=== PATIENT | male | born 1980 | race Caucasian/White ===

== ENCOUNTER 2023-11-29 04:40 | Emergency (ER) | payer OTHER ==
[2023-11-29 04:47] LABS: Glucose,Whole Blood 90 mg/dL (70-110)
--- NOTE | 2023-11-29 05:24 | ED ---
General Adult HPI - General Source: patient Mode of arrival: wheelchair Limitations: no limitations - History of Present Illness -: minutes(s) Severity scale (1-10): 0 Improves with: none Worsens with: none Associated Symptoms: denies other symptoms Treatments Prior to Arrival: none <Lanre Hernandez - Last Filed: 11/29/23 07:31> <John Jefferson - Last Filed: 11/29/23 09:06> - General Chief complaint: Fall Stated complaint: Syncope Time Seen by Provider: 11/29/23 05:04 - History of Present Illness Initial comments: Patient is a 43-year-old man who presents to have evaluation for altered mental status. Patient's states that in the middle of the night she heard a loud noise and when she checked she found that the patient had fallen. He appeared to be staring off and did not respond when she shook him. She states that after brief period he started to become more alert but was confused. He kept asking what had happened. The patient's had called EMS but when he became more responsive she canceled the call and drove him here. (Lanre Hernandez) - Related Data Allergies Allergy/AdvReac Type Severity Reaction Status Date / Time Penicillins Allergy Unknown Verified 11/29/23 04:48 Childhood Review of Systems ROS Other: All systems not noted in ROS Statement are negative. <Lanre Hernandez - Last Filed: 11/29/23 07:31> ROS Other: All systems not noted in ROS Statement are negative. <John Jefferson - Last Filed: 11/29/23 09:06> ROS Statement: Those systems with pertinent positive or pertinent negative responses have been documented in the HPI. Past Medical History Past Medical History: Hypertension History of Any Multi-Drug Resistant Organisms: None Reported Past Surgical History: No Surgical Hx Reported Past Psychological History: No Psychological Hx Reported Smoking Status: Never smoker Past Alcohol Use History: None Reported Past Drug Use History: None Reported <Lanre Hernandez - Last Filed: 11/29/23 07:31> General Exam Limitations: no limitations General appearance: alert, in no apparent distress Head exam: Present: atraumatic, normocephalic Eye exam: Present: normal appearance, PERRL, EOMI. Absent: scleral icterus, conjunctival injection Neck exam: Present: normal inspection, full ROM. Absent: tenderness, meningismus Respiratory exam: Present: normal lung sounds bilaterally. Absent: respiratory distress, wheezes, rales, rhonchi, stridor, accessory muscle use Cardiovascular Exam: Present: regular rate, normal rhythm, normal heart sounds. Absent: systolic murmur, diastolic murmur, rubs, gallop GI/Abdominal exam: Present: soft. Absent: distended, tenderness, guarding, rebound Extremities exam: Present: normal inspection, normal capillary refill. Absent: pedal edema, calf tenderness Back exam: Present: normal inspection. Absent: CVA tenderness (R), CVA tenderness (L), vertebral tenderness Neurological exam: Present: alert, oriented X3, CN II-XII intact. Absent: motor sensory deficit Expanded Patient oriented to: Present: person, place, time Speech: Present: fluid speech Sensory exam: Upper Extremity Light Touch: Normal, Lower Extremity Light Touch: Normal Motor strength exam: RUE: 5, LUE: 5, RLE: 5, LLE: 5 Eye Response: (4) open spontaneously Motor Response: (6) obeys commands Verbal Response: (5) oriented Skin exam: Present: warm, dry, intact, normal color. Absent: rash <Lanre Hernandez - Last Filed: 11/29/23 07:31> Limitations: no limitations General appearance: alert, in no apparent distress Head exam: Present: atraumatic, normocephalic Eye exam: Present: normal appearance, PERRL, EOMI ENT exam: Present: normal oropharynx Neck exam: Present: normal inspection. Absent: tenderness Respiratory exam: Present: normal lung sounds bilaterally Cardiovascular Exam: Present: regular rate, normal rhythm GI/Abdominal exam: Present: soft. Absent: tenderness Extremities exam: Present: normal inspection Back exam: Present: normal inspection Neurological exam: Present: alert, oriented X3, CN II-XII intact. Absent: motor sensory deficit Expanded Neurological exam: Present: protecting the airway Patient oriented to: Present: person, place, time Speech: Present: fluid speech Cranial nerves: EOM's Intact: Normal, Facial Sensation: Normal Sensory exam: Upper Extremity Light Touch: Normal, Lower Extremity Light Touch: Normal Motor strength exam: RUE: 5, LUE: 5, RLE: 5, LLE: 5 Eye Response: (4) open spontaneously Motor Response: (6) obeys commands Verbal Response: (5) oriented Psychiatric exam: Present: normal affect, normal mood Skin exam: Present: normal color <John Jefferson - Last Filed: 11/29/23 09:06> Course <John Jefferson - Last Filed: 11/29/23 09:06> Vital Signs 11/29/23 11/29/23 11/29/23 04:42 07:42 08:05 Temperature 97.3 F L 98.1 F Pulse Rate 106 H 103 H 92 Respiratory 20 18 18 Rate Blood Pressure 144/90 125/92 135/92 O2 Sat by Pulse 99 99 97 Oximetry - Reevaluation(s) Reevaluation #1: 11/29/23 07:25 Call from radiologist with concern for possible left vertex subarachnoid hemorrhage. Patient reevaluated by myself. Neurointerventional called. Patient is alert and oriented and appropriate. Patient only complains of mild headache at this time. No headache earlier. states she heard a fall around 4:15 AM. Patient was confused around 20 to 30 minutes, mostly in route however has been acting appropriate since that time. 11/29/23 07:42 Case was discussed with Dr. Kerr who agrees with CT angiogram and will review studies. CT was notified of need for stat exam. (John Jefferson) EKG Findings - EKG Results: EKG: interpreted by ERON, sinus rhythm (Rate 86 bpm), normal axis, normal QRS, normal ST/T, no acute changes - OR, Pacemaker, Normal: Normal tracing: normal tracing <Lanre Hernandez - Last Filed: 11/29/23 07:31> Medical Decision Making - Lab Data Result diagrams: 11/29/23 05:15 11/29/23 05:15 <Lanre Hernandez - Last Filed: 11/29/23 07:31> - Lab Data Result diagrams: 11/29/23 05:15 11/29/23 05:15 <John Jefferson - Last Filed: 11/29/23 09:06> - Medical Decision Making Was pt. sent in by a medical professional or institution (, PA, CORRECTIVE THERAPY AIDE, urgent care, hospital, or alf...) When possible be specific @ -No Did you speak to anyone other than the patient for history (EMS, parent, family, police, friend...)? What history was obtained from this source @ - is present helps provide history the patient does not recall Did you review nursing and triage notes (agree or disagree)? Why? @ -I reviewed and agree with nursing and triage notes Were old charts reviewed (outside hosp., previous admission, EMS record, old EKG, old radiological studies, urgent care reports/EKG's, alf records)? Report findings @ -No old charts were reviewed Differential Diagnosis (chest pain, altered mental status, abdominal pain women, abdominal pain men, vaginal bleeding, weakness, fever, dyspnea, syncope, headache, dizziness, GI bleed, back pain, seizure, CVA, palpatations, mental health, musculoskeletal)? @ -Differential Altered Mental Status: Hypoglycemia, DKA, hypercapnia, ETOH, overdose, CO poisoning, trauma, myxedema coma, HTN encephalopathy, infection, encephalitis, psychosis, intercranial hemorrhage, hepatic encephalopathy, meningitis, CVA, this is not meant to be an all-inclusive list EKG interpreted by me (3pts min.). @ -As above X-rays interpreted by me (1pt min.). @ -Chest x-ray shows no acute process CT interpreted by me (1pt min.). @ -CT scan of the brain with concern for subarachnoid blood at the left vertex. CT angio unremarkable as reviewed with Dr. Kerr U/S interpreted by me (1pt. min.). @ -None done What testing was considered but not performed or refused? (CT, X-rays, U/S, labs)? Why? @ -None What meds were considered but not given or refused? Why? @ -None Did you discuss the management of the patient with other professionals (professionals i.e. , PA, CORRECTIVE THERAPY AIDE, lab, RT, psych nurse, 7th grade social studies teacher, right of way man, teacher, customs and border protection officer, test case developer)? Give summary @ -Case was discussed with Dr. Kerr who did review CT angio and has no concerns for aneurysm however does recommend transfer to [facility] for further evaluation. Case discussed with Dr. Liang who will accept transfer. Was smoking cessation discussed for >3mins.? @ -No Was critical care preformed (if so, how long)? @ -31 minutes critical care time Were there social determinants of health that impacted care today? How? (Homelessness, low income, unemployed, alcoholism, drug addiction, transportation, low edu. Level, literacy, decrease access to med. care, nursing home, rehab)? @ -No Was there de-escalation of care discussed even if they declined (Discuss DNR or withdrawal of care, Hospice)? DNR status @ -No What co-morbidities impacted this encounter? (DM, HTN, Smoking, COPD, CAD, Cancer, CVA, ARF, Chemo, Hep., AIDS, mental health diagnosis, sleep apnea, morbid obesity)? @ -None Was patient admitted / discharged? Hospital course, mention meds given and route, prescriptions, significant lab abnormalities, going to OR and other pertinent info. @ -Patient presents with syncope versus injury with loss of consciousness with concern for possible blood left vertex, subarachnoid. CT angio unremarkable. Patient be transferred for level of care and further evaluation at [facility]. Patient and family updated. Undiagnosed new problem with uncertain prognosis? @ -No Drug Therapy requiring intensive monitoring for toxicity (Heparin, Nitro, Insulin, Cardizem)? @ -No Were any procedures done? @ -No Diagnosis/symptom? @ -Subarachnoid hemorrhage Acute, or Chronic, or Acute on Chronic? @ -Acute Uncomplicated (without systemic symptoms) or Complicated (systemic symptoms)? @ -Default Side effects of treatment? @ -No Exacerbation, Progression, or Severe Exacerbation? @ -No Poses a threat to life or bodily function? How? (Chest pain, USA, OR, pneumonia, PE, COPD, DKA, ARF, appy, cholecystitis, CVA, Diverticulitis, Homicidal, Suicidal, threat to staff... and all critical care pts) @ -No (John Jefferson) - Lab Data Lab Results 11/29/23 11/29/23 11/29/23 Range/Units 04:44 05:15 05:15 WBC 9.4 (3.8-10.6) k/uL RBC 5.72 (4.30-5.90) m/uL Hgb 16.8 (13.0-17.5) gm/dL Hct 49.9 (39.0-53.0) % MCV 87.3 (80.0-100.0) fL MCH 29.5 (25.0-35.0) pg MCHC 33.7 (31.0-37.0) g/dL RDW 12.6 (11.5-15.5) % Plt Count 258 (150-450) k/uL MPV 8.5 Neutrophils % 65 % Lymphocytes % 24 % Monocytes % 4 % Eosinophils % 3 % Basophils % 1 % Neutrophils # 6.1 (1.3-7.7) k/uL Lymphocytes # 2.3 (1.0-4.8) k/uL Monocytes # 0.4 (0-1.0) k/uL Eosinophils # 0.3 (0-0.7) k/uL Basophils # 0.1 (0-0.2) k/uL Sodium 137 (137-145) mmol/L Potassium 4.2 (3.5-5.1) mmol/L Chloride 105 (98-107) mmol/L Carbon Dioxide 16 L (22-30) mmol/L Anion Gap 16 mmol/L BUN 11 (9-20) mg/dL Creatinine 1.00 (0.66-1.25) mg/dL Est GFR (CKD-EPI)AfAm >90 (>60 ml/min/1.73 sqM) Est GFR (CKD-EPI)NonAf >90 (>60 ml/min/1.73 sqM) Glucose 94 (74-99) mg/dL POC Glucose (mg/dL) 90 (70-110) mg/dL POC Glu Internet Application Developer ID Jose Serrano Calcium 9.5 (8.4-10.2) mg/dL Magnesium 2.1 (1.6-2.3) mg/dL Total Bilirubin 1.4 H (0.2-1.3) mg/dL AST 51 (17-59) U/L ALT 54 H (4-49) U/L Alkaline Phosphatase 82 (38-126) U/L Total Protein 8.3 H (6.3-8.2) g/dL Albumin 5.2 H (3.5-5.0) g/dL Disposition <Lanre Hernandez - Last Filed: 11/29/23 07:31> Is patient prescribed a controlled substance at d/c from ED?: No Time of Disposition: 09:06 - Out of Hospital Transfer - Req. Specs Out of Hospital Transfer - Requested Specifics: Other Emergency Center <John Jefferson - Last Filed: 11/29/23 09:06> Clinical Impression: Subarachnoid hemorrhage Disposition: OTHER INSTITUTION NOT DEFINED Referrals: Carlos Bonilla MD [Primary Care Provider] - 1-2 days
[2023-11-29] MEDS: SODIUM CHLORIDE 0.9% 500 ML 500 ML IV STA (05:42)
[2023-11-29 05:43] LABS: Basophils # (A) 0.1 k/uL (0-0.2); Basophils % (A) 1 %; Eosinophils # (A) 0.3 k/uL (0-0.7); Eosinophils % (A) 3 %; HCT 49.9 % (39.0-53.0); HGB 16.8 gm/dL (13.0-17.5); Lymphocytes # (A) 2.3 k/uL (1.0-4.8); Lymphocytes % (A) 24 %; MCH 29.5 pg (25.0-35.0); MCHC 33.7 g/dL (31.0-37.0); MCV 87.3 fL (80.0-100.0); Mean Platelet Volume 8.5; Monocytes # (A) 0.4 k/uL (0-1.0); Monocytes % (A) 4 %; Neutrophils # (A) 6.1 k/uL (1.3-7.7); Neutrophils % (A) 65 %; Platelet Count 258 k/uL (150-450); RBC 5.72 m/uL (4.30-5.90); RDW 12.6 % (11.5-15.5); WBC 9.4 k/uL (3.8-10.6)
[2023-11-29 05:56] LABS: ALT 54 U/L (4-49); African American GFR (CKD) >90 (>60 ml/min/1.73 sqM); Albumin 5.2 g/dL (3.5-5.0); Anion Gap 16 mmol/L; Blood Urea Nitrogen 11 mg/dL (9-20); Calcium 9.5 mg/dL (8.4-10.2); Carbon Dioxide 16 mmol/L (22-30); Chloride 105 mmol/L (98-107); Glucose 94 mg/dL (74-99); Non-African American GFR(CKD) >90 (>60 ml/min/1.73 sqM); Sodium 137 mmol/L (137-145); Total Bilirubin 1.4 mg/dL (0.2-1.3); Total Protein 8.3 g/dL (6.3-8.2)
[2023-11-29 05:58] LABS: AST 51 U/L (17-59); Alkaline Phosphatase 82 U/L (38-126); Magnesium 2.1 mg/dL (1.6-2.3); Potassium 4.2 mmol/L (3.5-5.1)
--- NOTE | 2023-11-29 07:04 | CT ---
EXAMINATION TYPE: CT brain wo con DATE OF EXAM: 11/29/2023 COMPARISON: None HISTORY: PATIENT ROLLED OFF THE BED IN THE MIDDLE OF THE NIGHT AND DOES NOT REMEMBER CT DLP: 1197.7 mGycm. Automated Exposure Control for Dose Reduction was Utilized. TECHNIQUE: CT scan of the head is performed without contrast. Findings: The ventricles, basal cisterns and sulci over the convexities are within normal limits and there is n o mass effect or shift of midline structures. This is 16 mm area of abnormal increased density within the sulci of the left occipital lobe suspicio us for acute subarachnoid hemorrhage. The posterior fossa including the brainstem, fourth ventricle and cerebellar pontine angles appear no rmal. Intraorbital contents appear normal and symmetric. Visualized paranasal sinuses and mastoid air cells are well aerated. The calvarium is intact. IMPRESSION: Findings suspicious for focal acute subarachnoid hemorrhage in the left parietal lobe. Short-term fol low-up CT brain or MRI is recommended for further evaluation.
--- NOTE | 2023-11-29 07:09 | XR ---
EXAMINATION TYPE: XR chest 1V portable DATE OF EXAM: 11/29/2023 COMPARISON: NONE HISTORY: Syncope TECHNIQUE: Single frontal view of the chest is obtained. FINDINGS: There is no focal air space opacity, pleural effusion, or pneumothorax seen. The cardiac silhouette size is within normal limits. The osseous structures are intact. IMPRESSION: No acute process.
[2023-11-29 07:49] VITALS: TEMP 98.1
--- NOTE | 2023-11-29 08:31 | CT ---
EXAMINATION TYPE: CT angio head neck DATE OF EXAM: 11/29/2023 HISTORY: syncope, bleed COMPARISON: None CT DLP: 1124.2 mGycm. Automated Exposure Control for Dose Reduction was Utilized. TECHNIQUE: CTA scan of the head and neck is performed with IV Contrast, patient injected with 65 mL of Isovue 370, axial images are obtained, coronal and sagittal reformatted images are reviewed. 3D re constructed images are created on an independent workstation and reviewed. FINDINGS: The brachiocephalic origins are widely patent and no significant stenosis. There is a common origin o f the right brachiocephalic artery and left carotid artery. There is no significant stenosis of the common or internal carotid arteries within the neck. There is no stenosis of the vertebral arteries. Intracranially, there is no stenosis, segmental occlusion, sizable aneurysm sac or vascular malformat ion. IMPRESSION:. No significant abnormality seen. NASCET criteria was used in interpretation of this exam?
[2023-11-29] MEDS: levETIRAcetam IV 500 MG/5 ML VIAL IVP STA (09:44)
[2023-11-29 09:48] VITALS: BP 139/90; PULSE 68
[2023-11-29 09:56] VITALS: RESP 16
== END 2023-11-29 09:56 | disposition other institution (70) ==
LOC: EC 04:40
DX: S06.6X0A Traumatic subarachnoid hemorrhage without loss of consciousness, initial encounter (principal); Z88.0 Allergy status to penicillin; W06.XXXA Fall from bed, initial encounter
CPT/HCPCS: 36415; 93005; 80053; 83735; 85025; 71045; 70496; 70450; 70498; 99285; 96374; 96361 ×4; J1953; Q9967